=== PATIENT | female | born 1960 | race Caucasian/White ===

== ENCOUNTER 2024-03-24 17:35 | Emergency (ER) | payer OTHER ==
[~2024-03-24] VITALS: Ht 167.6 cm; Wt 70.4 kg
[2024-03-24 18:44] VITALS: TEMP 98.4
[2024-03-24] MEDS: HYDROcodone/acetaminophen 5mg/325mg tablet PO ONE (19:30)
[2024-03-24] MEDS: metoclopramide 5 mg/ml inj IM ONE (19:31)
[2024-03-24] MEDS: diphenhydrAMINE 50 mg/ml inj IM ONE (19:31)
[2024-03-24 19:37] VITALS: BP 138/75; PULSE 96; RESP 18; O2SAT 98
== END 2024-03-24 19:39 | disposition home or self-care (01) ==
LOC: ER 17:36
DX: M16.12 Unilateral primary osteoarthritis, left hip (principal); R51.9 Headache, unspecified; Z88.8 Allergy status to other drugs, medicaments and biological substances
CPT/HCPCS: 70450; 73522; 96372; 99285; J1200; J2765